=== PATIENT | male | born 1960 | race Caucasian/White ===

== ENCOUNTER 2024-10-25 07:14 | Day surgery (SDC) | payer OTHER ==
[~2024-10-25 07:14] MED LIST: Sodium Chloride 0.9% 10 ML Syringe FLUSH PRN; Sodium Chloride 0.9% 10 ML Syringe FLUSH SCH
[2024-10-25] MEDS: Lactated Ringers 1,000 ML IV SCH (07:30)
[2024-10-25] MEDS ORDERED: Propofol 200 MG/20 ML SDV ONE ×4 (08:06→08:24)
[2024-10-25] MEDS ORDERED: Phenylephrine 1% 10 MG/ML SDV ONE (08:15)
[2024-10-25] MEDS ORDERED: Glycopyrrolate 0.2 MG/ML SDV ONE (08:30)
== END 2024-10-25 09:55 | disposition home or self-care (01) ==
LOC: JD.SDS 07:14
PROVIDERS: ATTEND Surgery
DX: Z12.11 Encounter for screening for malignant neoplasm of colon (principal); I10 Essential (primary) hypertension; E11.9 Type 2 diabetes mellitus without complications; Z79.82 Long term (current) use of aspirin; Z79.4 Long term (current) use of insulin; Z79.899 Other long term (current) drug therapy; Z79.84 Long term (current) use of oral hypoglycemic drugs; Z91.018 Allergy to other foods
CPT/HCPCS: J1596; J2371; J2704; J7120

== ENCOUNTER 2025-01-12 17:07 | Emergency (ER) | payer OTHER ==
[2025-01-12] MEDS ORDERED: Sodium Chloride 0.9% 10 ML Syringe FLUSH PRN (17:17)
[2025-01-12] MEDS: HYDROmorphone 0.5 MG/0.5 ML Syringe IVPUSH ONE (17:34)
[2025-01-12] MEDS: Diphtheria,Pertussis(Acell),Tetanus Vaccine 0.5 ML Syringe IM ONE (17:37)
[2025-01-12] MEDS: ceFAZolin 2 GM Vial IVPUSH ONE (17:46)
[2025-01-12] MEDS: Bupivacaine 0.5% 10 ML SDV INJECT ONE (18:50)
== END 2025-01-12 19:39 ==
LOC: JD.ED 17:07
DX: S62.630B Displaced fracture of distal phalanx of right index finger, initial encounter for open fracture (principal); Z23 Encounter for immunization; Z91.018 Allergy to other foods; Z79.82 Long term (current) use of aspirin; Z79.899 Other long term (current) drug therapy; Z79.4 Long term (current) use of insulin; W26.8XXA Contact with other sharp object(s), not elsewhere classified, initial encounter
CPT/HCPCS: 64450; 73140; 90471; 90715; 96374; 96375; 99285; J0665; J0690